=== PATIENT | male | born 1955 | race Caucasian/White ===

== ENCOUNTER 2023-08-05 08:28 | Observation (INO) ==
--- NOTE | 2023-06-25 09:14 | PAT Medication Instructions ---
Medication Instructions Date of Service June 25, 2023 Home Medications albuterol sulfate 90 mcg/actuation aerosol inhaler 2 puff inhalation QID PRN cetirizine 10 mg tablet (Zyrtec) 10 mg PO DAILY PRN cholecalciferol (vitamin D3) 125 mcg (5,000 unit) tablet (Vitamin D3) 50,000 unit PO WK dicyclomine 10 mg capsule 10 mg PO TID PRN finasteride 5 mg tablet 5 mg PO QAM ibuprofen 600 mg tablet 600 mg PO HS nebivolol 10 mg tablet (Bystolic) 10 mg PO QAM rosuvastatin 20 mg tablet (Crestor) 20 mg PO QAM tamsulosin 0.4 mg capsule 0.4 mg PO QAM tramadol 50 mg tablet 50 mg PO Q8H PRN triamcinolone acetonide 55 mcg nasal spray aerosol (Nasacort) 1 spray intranasal UD PRN valsartan 160 mg-hydrochlorothiazide 12.5 mg tablet 1 tab PO HS Continue as directed triamcinolone acetonide 55 mcg nasal spray aerosol (Nasacort) 1 spray intranasal UD PRN(if needed) ASK your surgeon for instructions ibuprofen 600 mg tablet 600 mg PO HS DO NOT take the morning of surgery cetirizine 10 mg tablet (Zyrtec) 10 mg PO DAILY PRN cholecalciferol (vitamin D3) 125 mcg (5,000 unit) tablet (Vitamin D3) 50,000 unit PO WK Take morning of surgery With a small sip of water, OTHERWISE NOTHING TO EAT OR DRINK AFTER MIDNIGHT: albuterol sulfate 90 mcg/actuation aerosol inhaler 2 puff inhalation QID PRN(use if needed; please bring with you to hospital day of surgery if possible) dicyclomine 10 mg capsule 10 mg PO TID PRN(if needed) finasteride 5 mg tablet 5 mg PO QAM nebivolol 10 mg tablet (Bystolic) 10 mg PO QAM rosuvastatin 20 mg tablet (Crestor) 20 mg PO QAM tamsulosin 0.4 mg capsule 0.4 mg PO QAM tramadol 50 mg tablet 50 mg PO Q8H PRN(if needed) Take evening before surgery albuterol sulfate 90 mcg/actuation aerosol inhaler 2 puff inhalation QID PRN(if needed) dicyclomine 10 mg capsule 10 mg PO TID PRN(if needed) tramadol 50 mg tablet 50 mg PO Q8H PRN(if needed) valsartan 160 mg-hydrochlorothiazide 12.5 mg tablet 1 tab PO HS Other Notes If you have any questions please call us at [phone] or [phone] or [phone] or [phone]
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
[~2023-08-05 08:28] MED LIST: BUPIVACAINE 0.25% PF 30 ML VIAL ONE; BUPIVACAINE 0.5 % 5 MG/1 ML PF 10ML VIAL ONE
[2023-08-05] MEDS: FAMOTIDINE 20 MG TAB PO SCH (09:36)
[2023-08-05] MEDS: ACETAMINOPHEN 500 MG TAB PO SCH ×2 (09:36→21:50)
[2023-08-05] MEDS: GABAPENTIN 300 MG CAP PO SCH (09:36)
[2023-08-05] MEDS: LR 60ML/HR IV SCH (09:37)
--- NOTE | 2023-08-05 09:49 | History & Physical Bridge Note ---
Date of Service August 05, 2023 History & Physical Bridge Note I have examined the patient, reviewed the History & Physical and in the interval since the performance of the History & Physical I have noted the following changes of clinical significance: no changes noted
[2023-08-05] MEDS: LR 500ML BOLUS, THEN 15ML/HR IV SCH (09:55)
[2023-08-05] MEDS: dexAMETHasone**PF** 10 MG/ML VIAL IV SCH (09:56)
[2023-08-05] MEDS ORDERED: PROPOFOL IV EMULSION 10 MG/ML 20 ML VIAL IV ONE (10:21)
[2023-08-05] MEDS ORDERED: ONDANSETRON INJ 2 MG/ML 2 ML VIAL ONE (10:21)
[2023-08-05] MEDS ORDERED: LIDOCAINE 2% 2 ML VIAL/AMP(20MG/ML) INFIL ONE (10:21)
[2023-08-05] MEDS ORDERED: MIDAZOLAM HCL 1 MG/ML 2ML VIAL ONE (10:21)
[2023-08-05] MEDS ORDERED: fentaNYL citrate PF 100 MCG/2 ML VIAL ONE (10:21)
[2023-08-05] MEDS ORDERED: ATROPINE SULFATE 0.1 MG/ML 10ML SYR IV PRN (10:23)
[2023-08-05] MEDS ORDERED: ePHEDrine sulfate 50 MG/ML AMP IV PRN (10:23)
[2023-08-05] MEDS ORDERED: fentaNYL citrate PF 100 MCG/2 ML VIAL IV PRN (10:23)
[2023-08-05] MEDS ORDERED: ONDANSETRON INJ 2 MG/ML 2 ML VIAL IV PRN ×2 (10:23→15:04)
[2023-08-05] MEDS: TRANEXAMIC ACID 1,000 MG **IV Pre-op IV SCH (10:53)
[2023-08-05] MEDS: ceFAZolin 2000MG 2,000 MG/15 ML SYR IV SCH (11:09)
[2023-08-05] MEDS: ORTHO JOINT ANESTHETIC ONE (11:59)
[2023-08-05] MEDS ORDERED: KETAMINE HCL 10MG/ML SYR ONE (12:21)
[2023-08-05] MEDS: ROPIV 0.5% 246mg, Ketorolac 30mg, EPINEPHrine 0.5mg in NSS INFIL SCH (13:12)
[2023-08-05] MEDS: TRANEXAMIC ACID 1,000 MG **IV Intra-op IV SCH (13:30)
--- NOTE | 2023-08-05 13:37 | Operative Report ---
PG Post Operative Report Pre & Post Diagnosis Operation Date: 08/05/23 10:00 Pre-Op Diagnosis: Bilateral Knees Degenerative Joint Disease Post-Op Diagnosis: Bilateral Knees Degenerative Joint Disease I identified the patient and participated in the time-out.: Yes Procedure Operation Date: 08/05/23 10:00 Actual Procedures p Bilateral Total Knee Arthroplasty(Bilateral) - Ciro Powell DO Surgeon Ciro Powell DO Matrix Worker Dax Patrick PA-C Estimated Blood Loss 60 Findings Consistent with Post-Op Diagnosis Specimens Bilateral femoral and tibial bone Description of Procedure Natanael arrived [facility] for the above procedure. He was seen in the preoperative holding area and both knees were identified and signed. He was given a preoperative antibiotic, TXA, a spinal anesthetic and adductor nerve blocks. He was taken back to the operating room and laid on the table in supine position. He was given basic sedation. Both knees were then prepped and draped in sterile fashion. A timeout was done, and the patient and the operative extremities were properly identified. Right knee implants used: I used a Mariela Persona total knee arthroplasty system with a size 10 femur, G tibia, 34 oval patella, and a size 10 medial congruent polyethylene bearing. All components were cemented in place with Palacos G cement. A midline incision was made directly over the patella. Dissection was taken down to the extensor mechanism. A medial parapatellar arthrotomy was used. The medial retinaculum was released and the fat pad was mostly excised. The knee was flexed and the ACL, PCL, and meniscus were removed. A persona signature guide was snapped onto the femur. A distal femoral cutting block was placed. 9 mm was resected off the distal femur. A 4-in-1 cutting block was then impacted into place. Anterior, posterior, and chamfer cuts were then made. The proximal tibia was then exposed. An external tibial alignment guide was placed. A tibial cut guide was then anchored in place and the proximal tibia was then resected. The posterior aspect of the knee was then opened up and any additional meniscus fragments and osteophytes were removed. The tibia measured to be a size G. The tibial plate was then placed in the appropriate rotation and the tibia was drilled and punched. Trial components were then placed. I used a size 10 medial congruent polyethylene insert. The knee was brought through a full range of motion and felt to be stable. The peg holes for the femur were then drilled. The patella was then everted and 9 mm was resected off the posterior aspect of the patella. The patella measured to be a size 34 oval. 3 peg holes were then drilled. A trial patella was placed. The knee was once again brought through a full range of motion and felt to be stable. Trial components were then removed. The surrounding soft tissues were injected with 50 cc of an orthopedic pain control cocktail. All components were then cemented into place with Palacos G cement. The final polyethylene insert was then snapped into place. Once cement was dry the tourniquet was deflated. Hemostasis was obtained. A dilute betadyne lavage was then done for 3 minutes. The joint was then irrigated with normal saline solution. The medial parapatellar arthrotomy was then closed with #1 Vicryl suture. The skin was closed with 2-0 Vicryl, 3-0V lock suture, and pacheco. A Silverlon and a soft compressive dressing were placed. Left knee implants used: I used a Mariela Persona total knee arthroplasty system with a size 10 PS femur, G tibia, 34 oval patella, and a size 10 CPS polyethylene bearing. All components were cemented in place with Palacos G cement. A midline incision was made directly over the patella. Dissection was taken down to the extensor mechanism. A medial parapatellar arthrotomy was used. The medial retinaculum was released and the fat pad was mostly excised. The knee was flexed and the ACL, PCL, and meniscus were removed. A persona signature guide was snapped onto the femur. A distal femoral cutting block was placed. 9 mm was resected off the distal femur. A 4-in-1 cutting block was then impacted into place. Anterior, posterior, and chamfer cuts were then made. The proximal tibia was then exposed. An external tibial alignment guide was placed. A tibial cut guide was then anchored in place and the proximal tibia was then resected. The posterior aspect of the knee was then opened up and any additional meniscus fragments and osteophytes were removed. The tibia measured to be a size G. The tibial plate was then placed in the appropriate rotation and the tibia was drilled and punched. Trial components were then placed. I used a size 10 CPS polyethylene insert. The knee was brought through a full range of motion and felt to be stable. The peg holes for the femur were then drilled. The patella was then everted and 9 mm was resected off the posterior aspect of the patella. The patella measured to be a size 34 oval. 3 peg holes were then drilled. A trial patella was placed. The knee was once again brought through a full range of motion and felt to be stable. Trial components were then removed. The surrounding soft tissues were injected with 50 cc of an orthopedic pain control cocktail. All components were then cemented into place with Palacos G cement. The final polyethylene insert was then snapped into place. Once cement was dry the tourniquet was deflated. Hemostasis was obtained. A dilute betadyne lavage was then done for 3 minutes. The joint was then irrigated with normal saline solution. The medial parapatellar arthrotomy was then closed with #1 Vicryl suture. The skin was closed with 2-0 Vicryl, 3-0V lock suture, and pacheco. A Silverlon and a soft compressive dressing were placed. He was then transferred to a hospital bed and taken to the postanesthesia care unit in stable condition. He tolerated the procedure well. Dax Patrick PA-C, was present for the entire procedure. He was critical for patient positioning, prepping, draping, retraction exposure, wound closure and application of sterile dressing. I attest to the content of the Intraoperative Record and any orders documented therein. Any exceptions are noted below.
--- NOTE | 2023-08-05 14:32 | Anesthesiology Progress Note ---
Date of Service August 05, 2023 Anesthesia Post Procedure Vital Signs Vital Signs: Temp Pulse Pulse Resp BP Pulse Ox O2 Del Method 08/05/23 14:20 60 12 110/71 96 Room Air 08/05/23 14:10 59 L 12 126/77 100 Oxymask 08/05/23 14:01 36.3 C L 77 14 139/71 99 Oxymask 08/05/23 09:19 36.6 C 74 20 153/96 H 96 Room Air O2 Flow Rate 08/05/23 14:20 08/05/23 14:10 6 08/05/23 14:01 6 08/05/23 09:19 Pain Intensity Left Knee: Pain Intensity: 3 Transfer of Care Handoff Completed per policy Notes Mental Status: alert / awake / arousable Patient Amnestic to Procedure: Yes Nausea / Vomiting: adequately controlled Pain: adequately controlled Airway Patency, RR, SpO2: stable & adequate BP & HR: stable & adequate Hydration State: stable & adequate Neuraxial Anesthesia: was administered and sensory block is resolving Anesthetic Complications: no major complications apparent
--- NOTE | 2023-08-05 14:51 | XRay Report ---
XR knee RT 1 or 2V routine, XR knee LT 1 or 2V routine CLINICAL HISTORY: Surgical Post Op TECHNIQUE: 2 views of the bilateral knees were obtained. Comparison: Comparison is made to CT left and right knees 06/28/2023 FINDINGS: Postsurgical changes of bilateral knee arthroplasty are seen with expected soft tissue swelling, subc utaneous emphysema, no evidence of acute fracture. IMPRESSION: Expected postoperative appearance status post placement of bilateral total knee arthroplasty. ACT 112: Negative or not required by law. Electronically signed by: Feliciano Fontenot M.D. 08/05/2023 2:49 PM
[2023-08-05] MEDS ORDERED: MAGNESIUM HYDROXIDE SUSP 30 ML UDC PO PRN (15:04)
[2023-08-05] MEDS ORDERED: METOCLOPRAMIDE HCL INJ 5 MG/ML 2 ML VIAL IV PRN (15:04)
[2023-08-05] MEDS ORDERED: HYDROmorphone INJ 0.5 MG/0.5 ML SYR IV PRN (15:04)
[2023-08-05] MEDS ORDERED: bisacodyL 10 MG SUPP PR PRN (15:04)
[2023-08-05] MEDS ORDERED: NALOXONE HCL 0.4 MG/1 ML VIAL/CARP IV PRN (15:04)
[2023-08-05] MEDS ORDERED: oxyCODONE HCL IR 5 MG TAB (IMMEDIATE RELEASE) PO PRN (15:04)
[2023-08-05] MEDS: SODIUM CHLORIDE 0.9% 1,000 ML IV SCH (16:16)
[2023-08-05] MEDS: KETOROLAC TROMETHAMINE 15 MG/ML VIAL IV SCH (16:16)
[2023-08-05] MEDS: ceFAZolin 1000MG 1,000 MG/7.5 ML SYR IV SCH (18:41)
[2023-08-05] MEDS: ASPIRIN 81 MG ECTAB PO SCH (20:35)
[2023-08-05] MEDS: ASPIRIN 81 MG ECTAB PO ONE (20:35)
[2023-08-05] MEDS: DOCUSATE SODIUM 100 MG CAP PO SCH (20:36)
[2023-08-05] MEDS: METOPROLOL TARTRATE 50 MG TAB PO SCH (20:36)
[2023-08-05] MEDS: SENNA 8.6 MG TAB PO SCH (20:37)
[2023-08-06] MEDS: hydroCHLOROthiazide 25 MG TAB PO SCH (08:17)
[2023-08-06] MEDS: FINASTERIDE 5 MG TAB PO SCH (08:17)
[2023-08-06] MEDS: VALSARTAN 80 MG TAB PO SCH (08:18)
[2023-08-06] MEDS: MULTIVITAMIN TAB PO SCH (08:18)
[2023-08-06] MEDS: dexAMETHasone 4 MG TAB PO SCH (08:19)
[2023-08-06] MEDS: TAMSULOSIN HCL 0.4 MG CAP PO SCH (08:19)
[2023-08-06] MEDS: ROSUVASTATIN CALCIUM 20 MG TAB PO SCH (08:20)
[2023-08-06] MEDS: traMADol HCL 50 MG TABLET PO PRN (08:24)
--- NOTE | 2023-08-06 12:00 | Orthopedic Progress Note ---
Date of Service August 06, 2023 Assessment & Plan (1) Status post bilateral knee replacements: Overall, he is doing quite well today with good pain control to the bilateral knees. He has worked with physical therapy working on ambulation and range of motion exercises with no significant issues. He is on aspirin for DVT prophylaxis. He can be discharged home later this morning pending formal physical therapy evaluation and recommendation. 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 He will follow-up with orthopedics in 2 weeks for postoperative management. Subjective . Natanael was seen and evaluated this morning resting comfortably in no apparent distress. He notes that his pain is well-controlled in his bilateral knees. He has been up and worked with physical therapy with no significant issues. He denies any other concerns today. Review of Systems All systems reviewed & are unremarkable except as noted in HPI & below. Physical Exam . On physical examination of bilateral knees, dressings are clean, dry, intact. His legs are out in full extension. He has active plantarflexion dorsiflexion in bilateral ankles. +2 DP and PT pulses. Less than 2-second capillary refill. Normal sensation. Neurovascular intact. Results & Data Results & Data Laboratory Results . Diagnostic Findings . Postoperative x-rays of bilateral knees show prosthesis to be in anatomical alignment with no signs of fracture complication or loosening bilaterally. PG Care Time/CCT Total # of Minutes Spent Total Time Spent with Patient: Total time spent is greater than 50% in coordination of care (as documented) at patient's floor/unit and/or counseling patient: Coding Level of Care Code 61662 Post Operative Follow-Up Diagnoses Status post bilateral knee replacements Z96.653
--- NOTE | 2023-08-06 12:02 | Discharge Summary ---
Date of Service August 06, 2023 Admission HPI (Per Admitting) Natanael is a pleasant 67-year-old male who has a long history of multiple surgeries to both knees. Most of them were done down in [place], [place]. He has had ACL reconstruction of his left knee and multiple knee arthroscopies. He has had multiple knee arthroscopies of his right knee. Unfortunately, he continues to deal with bilateral knee pain. They are affecting his quality of life and his daily activities. 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 After failing extensive conservative treatment, he has elected proceed with bilateral total knee arthroplasties. Admission Exam (Per Admitting) Physical examination, he is a slight varus deformity. There is tenderness to palpation of the distal medial femoral condyles and over the medial joint lines. Principal Diagnosis Same as "Discharge Diagnosis" noted below under Discharge Instructions. Discharge Exam . On physical examination of bilateral knees, dressings are clean, dry, intact. His legs are out in full extension. He has active plantarflexion dorsiflexion in bilateral ankles. +2 DP and PT pulses. Less than 2-second capillary refill. Normal sensation. Neurovascular intact. Discharge Data Procedures Performed Operation Date: 08/05/23 10:00 Actual Procedures p Bilateral Total Knee Arthroplasty(Bilateral) - Ciro Powell DO Ordered Studies 08/05/23 05:00 US - OR guided needle placemen Routine Hospital Course (1) Status post bilateral knee replacements: On August 05, 2023 Natanael arrived at [facility] and underwent a bilateral total knee arthroplasty performed by Dr. Powell with no complications. He had a spinal anesthetic. Postoperatively, he was started on aspirin for DVT prophylaxis and transferred to the general orthopedic floor in stable condition. His hospital course was uneventful. On postoperative day #1, his vital signs were stable and his pain was well-controlled. He participated well with physical therapy working on ambulation and range of motion exercises. He was then discharged home in stable condition. He will follow-up in 2 weeks with orthopedics for postoperative management. PG Care Time/CCT Total # of Minutes Spent Total Time Spent with Patient: Total time spent is greater than 50% in coordination of care (as documented) at patient's floor/unit and/or counseling patient: Discharge Plan Discharge Items Patient Disposition: Home - Home Health Services Reason For Visit: Bilateral Knees Degenerative Joint Disease Discharge Diagnosis: Same Activity: Per Instructions section Non-emergency contact: Surgeon Call non-emergency contact if: your temperature is above 101.5, your wound has increased redness and your wound has increased drainage Follow-up/Referrals: JON LECHUGA [Other] Diet: Regular Addtl Attending Provider Instructions: Activity and Therapy Recommendations: * If you are using [facility] then therapy will be provided at your home until they feel you have accomplished all of your goals. * If you are using [facility] then Physical Therapy will be provided until they feel you are ready to start Outpatient Physical Therapy. * If you are not using home therapy then Outpatient Physical Therapy should start about 3-5 days from your day of surgery. Therapy will last about 6-10 weeks * It is important not to put a pillow under your knee when you are relaxing or sleeping. It is just as important to make sure you are getting your knee perfectly straight as it is to regain your knee bend. * You were shown a series of exercises in the hospital. Do these exercises three times each day including the exercises you were shown in physical therapy. * Get up and walk several times each day. For the first four weeks, try not to stand or walk for more than one hour at a time. If you do stand or walk for more than one hour, you will not hurt anything, but your leg will likely swell. * As you feel comfortable, you may change from the walker or crutches to a cane and then to independent walking. Medications: * Narcotic You will likely be sent home from the hospital with a prescription for the narcotic pain medication that worked best throughout your stay. * Cefadroxil -take antibiotic twice a day for 10 days to help prevent infection. * Aspirin Most patients will be required to take Aspirin 81mg twice a day for 6 weeks after surgery. This is obtained [id number] and a prescription is not necessary. * Other medications may be prescribed for specific circumstances. If you have any questions, please call the office at . * Resume previous home medications unless otherwise instructed TEDs/Elastic Stockings: The white elastic stockings help limit swelling and prevent blood clots from forming in your legs.~ The more you wear them, the more they work. Wear them for six weeks. Dressing Care: The dressing can be changed after physical therapy on postop day #1. Daily dry dressing changes for a few days, especially if the incision is still draining some. If the incision is not draining then you may leave the pacheco open to air. If there is a little bit of drainage or if the pacheco are getting stuck on your clothing then cover the incision with a dry dressing. The pacheco will be removed at your 2 week follow-up appointment. Showering: You may shower 5 days from the day of surgery as long as the incision is no longer draining. You may shower with the pacheco exposed. Let soapy water run over the pacheco and pat them dry. Do not scrub or soak the incision. Things To Watch For: * Drainage from the incision site that occurs more than one week after your surgery. * Increased redness at the incision site. * Fever above 102 degrees Fahrenheit. * Unusual chest pain or shortness of breath. * Call [facility] at with any of the above problems Follow-Up Visit: Follow-up with Dr. Powell's PA (Ciro Mixon) 2-3 weeks after your day of surgery. He will remove your pacheco and answer any questions. If you have any additional questions or concerns, Dr Powell is usually in the office at the same time and will be available An appointment was probably scheduled when you signed-up for surgery in the office. If you have any questions call Office Instructions: More detailed instructions as well as Frequently Asked Questions were provided in a folder by our office when you signed-up for surgery. Please review these instructions when you get home. If you have any further questions or concerns, please feel free to call the office at [phone] Pending Studies at Discharge: No Stand-Alone Forms: My [facility], Smoking Cessation Medications and DC Order Prescriptions: Continued cefadroxil 500 mg capsule 500 mg PO BID 10 Days Qty: 20 0RF Rx Instructions: post op oxycodone 5 mg tablet 5 mg PO Q6 PRN (Reason: pain) Qty: 30 0RF Rx Instructions: post op cetirizine [Zyrtec] 10 mg Tablet 10 mg PO DAILY PRN (Reason: Allergy Symptoms) valsartan-hydrochlorothiazide 160-12.5 mg Tablet 1 tab PO QAM tramadol 50 mg Tablet 50 mg PO Q8H PRN (Reason: Pain) tamsulosin 0.4 mg Capsule 0.4 mg PO QAM triamcinolone acetonide [Nasacort] 55 mcg Aerosol,[place] 1 spray INTRANASAL UD PRN (Reason: PRIOR TO BIPAP) Rx Instructions: administer into each nostril- a few times a week ibuprofen 600 mg Tablet 600 mg PO HS albuterol sulfate 90 mcg/actuation Hfa Aerosol Inhaler 2 puff INHALATION QID PRN (Reason: SOB) dicyclomine 10 mg Capsule 10 mg PO TID PRN (Reason: IBS) finasteride 5 mg Tablet 5 mg PO QAM rosuvastatin [Crestor] 20 mg Tablet 20 mg PO QAM nebivolol [Bystolic] 10 mg Tablet 10 mg PO QPM cholecalciferol (vitamin D3) [Vitamin D3] 125 mcg (5,000 unit) Tablet 50,000 unit PO WK Rx Instructions: saturdays ketorolac 10 mg Tablet 10 mg PO Q6H PRN (Reason: Pain) Rybelsus 3 mg Tablet 3 mg PO DAILY Discharge Orders: Discharge Order (Routine); Ordered 08/06/23 Ordered By: Ousmane Patrick Admission Data Admit Date/Time: 08/05/23 14:11 Attending Provider: Ciro Powell Admit Provider: Ciro Powell Primary Care Provider: Jon Lechuga Other Interventions: Discharge Summary Assessment (RN) Last Done: 08/06/23 10:01
== END 2023-08-06 11:08 | disposition home health service (06) ==
LOC: ASU 08:28 → 3E 14:11 → INTOOBSV 14:11